=== PATIENT | female | born 1960 | race Caucasian/White ===

== ENCOUNTER 2017-06-11 12:44 | Emergency (ER) | payer OTHER ==
[2017-06-11] MEDS: HYDROCODONE/APAP (5/325) TAB PO (13:32)
[2017-06-11] MEDS: KETOROLAC 30 MG INJ IM (13:33)
[2017-06-11] MEDS: HYDROmorphONE 2 MG/ML SYG IM (14:53)
[2017-06-11] MEDS: predniSONE 20 MG TAB PO (14:53)
== END 2017-06-11 15:21 | disposition home or self-care (01) ==
LOC: FTE 12:44
DX: M25.521 Pain in right elbow (principal); M25.522 Pain in left elbow; M25.531 Pain in right wrist; M25.532 Pain in left wrist; M79.672 Pain in left foot; M79.671 Pain in right foot; M25.571 Pain in right ankle and joints of right foot; M25.572 Pain in left ankle and joints of left foot; I10 Essential (primary) hypertension
CPT/HCPCS: 82962; 96372; 99284-25

== ENCOUNTER 2017-12-09 12:56 | Emergency (ER) | payer MEDICARE, OTHER ==
[2017-12-09] MEDS: LORAZEPAM 0.5 MG TAB PO (14:23)
[2017-12-09] MEDS: MECLIZINE 12.5 MG TAB PO (14:23)
[2017-12-09] MEDS: ACETAMINOPHEN 325 MG TAB PO ×2 (14:24→14:26)
[2017-12-09 14:31] LABS: URINE BLOOD (Dip) POC Trace-intact (NEGATIVE); URINE GLUCOSE (Dip) POC Negative (NEGATIVE); URINE KETONES (Dip) POC Negative (NEGATIVE); URINE LEUKOCYTE EST (Dip) POC Negative (NEGATIVE); URINE NITRITE (Dip) POC Negative (NEGATIVE); URINE TOTAL PROTEIN POC 1+ (NEGATIVE)
[2017-12-09 14:42] LABS: ADD MAN DIFF? NO
[2017-12-09 14:44] LABS: BASOPHILS % 0.4 % (0.0-2.0); EOSINOPHILS # 0.1 10^3/ul (0.0-0.5); EOSINOPHILS % 1.7 % (0.0-7.0); HEMATOCRIT 43.1 % (37.0-47.0); HEMOGLOBIN 14.3 g/dl (12.0-16.0); LYMPHOCYTES # 2.6 10^3/ul (0.8-2.9); LYMPHOCYTES % 33.8 % (15.0-51.0); MEAN CORPUSCULAR HEMOGLOBIN 28.6 pg (29.0-33.0); MEAN CORPUSCULAR HGB CONC 33.2 g/dl (32.0-37.0); MEAN CORPUSCULAR VOLUME 86.2 fl (82.0-101.0); MONOCYTE # 0.7 10^3/ul (0.3-0.9); NEUTROPHIL # 4.3 10^3/ul (1.6-7.5); NEUTROPHILS % 54.7 % (39.0-77.0); PLATELET COUNT 290 10^3/UL (140-415); RED CELL DISTRIBUTION WIDTH 12.6 % (11.5-14.5)
[2017-12-09 14:44] LABS: WHITE BLOOD COUNT 7.8 10^3/ul (4.8-10.8)
[2017-12-09 15:24] LABS: ANION GAP 6 (5-13); BLOOD UREA NITROGEN 15 mg/dl (7-20); CALCIUM 9.4 mg/dl (8.4-10.2); CARBON DIOXIDE 38 mmol/L (21-31); CHLORIDE 95 mmol/L (97-110); CREATININE 0.66 mg/dl (0.44-1.00); GLUCOSE 137 mg/dl (70-220); POTASSIUM 3.3 mmol/L (3.5-5.1); SODIUM 139 mmol/L (135-144)
[2017-12-09] MEDS: POTASSIUM CHLORIDE (SR) 20 MEQ TAB PO (15:58)
[2017-12-09] MEDS: IBUPROFEN 600 MG TAB PO (16:21)
== END 2017-12-09 16:24 | disposition home or self-care (01) ==
LOC: FTE 12:56
DX: R42 Dizziness and giddiness (principal); E87.6 Hypokalemia; I10 Essential (primary) hypertension
CPT/HCPCS: 80048; 81003; 82962; 85025; 93005; 99284-25

== ENCOUNTER 2018-05-26 11:37 | Emergency (ER) | payer OTHER, MEDICARE ==
[2018-05-26] MEDS: predniSONE 20 MG TAB PO (12:52)
== END 2018-05-26 13:22 | disposition home or self-care (01) ==
LOC: FTE 11:37
DX: S93.401A Sprain of unspecified ligament of right ankle, initial encounter (principal); I10 Essential (primary) hypertension; L23.9 Allergic contact dermatitis, unspecified cause; X50.1XXA Overexertion from prolonged static or awkward postures, initial encounter; Y92.9 Unspecified place or not applicable
CPT/HCPCS: 73610; 73610-RT; 99283-25